=== PATIENT | male | born 2000 | race Caucasian/White ===

== ENCOUNTER 2019-11-20 16:26 | Emergency (ER) | payer OTHER ==
[2019-11-20 17:06] VITALS: BP 112/57
--- NOTE | 2019-11-20 17:13 | UC ---
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 He is unsure whether he had a documented fever however he states he had some chills last evening but no other symptoms other than the left earache. He also has a history of impacted wisdom teeth for which she has not had surgery and he is wondering if that is part of his earache as well. - History of Current Complaint Chief Complaint: UCEar Stated Complaint: EAR COMPLAINT Time Seen by Provider: 11/20/19 16:57 Hx Obtained From: Patient Onset/Duration: Gradual Onset, Lasting Hours Severity Initially: Mild Severity Currently: Mild Pain Intensity: 6 Aggravating Factors: Nothing Alleviating Factors: Nothing - Allergies/Home Medications Allergies/Adverse Reactions: Allergies Allergy/AdvReac Type Severity Reaction Status Date / Time No Known Allergies Allergy Verified 11/20/19 17:06 Home Medications: Home Medications Ascorbic Acid TAB* [Vitamin C TAB*] 500 mg PO DAILY 11/20/19 [History Confirmed 11/20/19] Multivitamin [Multivitamins] 1 cap PO 11/20/19 [History] Jolo-3 Fatty Acids [Jolo-3] 1,000 mg PO 11/20/19 [History] PMH/Surg Hx/FS Hx/Imm Hx Previously Healthy: Yes - Surgical History Surgical History: Yes Surgery Procedure, Year, and Place: left elbow- 2018 - Family History Known Family History: Positive: Non-Contributory - Social History Occupation: Student Lives: Dormitory/Roommates Alcohol Use: Occasionally Substance Use Type: Marijuana Substance Use Comment - Amount & Last Used: occasionally Smoking Status (MU): Never Smoked Tobacco Review of Systems All Other Systems Reviewed And Are Negative: Yes Constitutional: Positive: Fever, Chills - Patient feels as though he may have had a slight fever with chills last evening. ENT: Positive: Dental Pain - Patient has a history of impacted wisdom teeth and he thinks some of his ear pain may be related to that., Ear Ache - Left earache started last evening. Is Patient Immunocompromised?: No Physical Exam Triage Information Reviewed: Yes Appearance: Well-Appearing, No Pain Distress, Well-Nourished Vital Signs: Initial Vital Signs Temp 98.9 F 11/20/19 16:59 Pulse 65 11/20/19 16:59 Resp 17 11/20/19 16:59 BP 112/57 11/20/19 16:59 Pulse Ox 99 11/20/19 16:59 Vital Signs Reviewed: Yes Eyes: Positive: Conjunctiva Clear ENT: Positive: Pharynx normal, TMs normal, Uvula midline Dental: Positive: Other: - Teeth are nontender and no evidence of dental caries or abscess. He does have partially impacted left lower wisdom tooth but there is no cellulitis or swelling present Neck: Positive: Supple, Nontender, No Lymphadenopathy Respiratory: Positive: Lungs clear, Normal breath sounds, No respiratory distress, No accessory muscle use Cardiovascular: Positive: RRR, No Murmur, Pulses Normal, Brisk Capillary Refill Musculoskeletal Exam: Normal Neurological Exam: Normal Psychological Exam: Normal Skin Exam: Normal Ear Complaint Course/Dx - Course Course Of Treatment: The patient is comfortable here. I gave him the name of the local oral surgeon to follow up with regarding the was teeth. He is from [place] however stated he may follow-up locally. He can take [id number] cold meds for his head congestion and follow-up at the [facility] if no improvement in 3 or 4 days. - Differential Dx/Diagnosis Provider Diagnosis: Earache, left Discharge ED - Sign-Out/Discharge Documenting (check all that apply): Patient Departure All imaging exams completed and their final reports reviewed: No Studies - Discharge Plan Condition: Good Disposition: HOME Patient Education Materials: Earache (ED) Referrals: No Primary Care Phys,NOPCP [Primary Care Provider] - KIKA DWYER [Z.BUSINESS, APPLICATION, OTHER] - Juan Stevenson DMD [Doctor of Dental Medicine] - Additional Instructions: [id number] cold medicines as directed. Follow up at the [facility] if no improvement in 3 or 4 days. Follow-up with the oral surgeon regarding your wisdom teeth. - Billing Disposition and Condition Condition: GOOD Disposition: Home
== END 2019-11-20 17:26 | disposition home or self-care (01) ==
LOC: UCCORT 16:26
DX: H92.02 Otalgia, left ear (principal); R50.9 Fever, unspecified; K08.89 Other specified disorders of teeth and supporting structures
CPT/HCPCS: 99201; G0463